=== PATIENT | male | born 1965 | race Caucasian/White ===

== ENCOUNTER 2017-06-14 10:36 | Inpatient (IN) | payer MEDICARE, BC ==
[~2017-06-14] VITALS: Ht 167.6 cm; Wt 80.7 kg
[~2017-06-14 10:36] MED LIST: AMLODIPINE BESY10 MG PO; ASPIR 8181 MG PO; BRILINTA90 MG PO; CALCITRIOL0.5 MCG PO; CELEXA 20 MG TA20 M1 PO; CEPHALEXIN 500500 M2 PO; EFFEXOR XR150 MG PO; ERYTHROMYCIN500 MG PO; FIFTY50 RESERV1 EACH; FOLIC ACID20 MG PO; HYDROCHLOROTH12.5 MG PO; IBUPROFEN 800800 M1 PO; LANTUS SC; LIPITOR 20 MG T20 M1 PO; LISINOPRIL20 MG PO; LOPRESSOR50 PO; MELATONIN3 MG PO; MINIPRIN81 MG PO; NORVASC 5 MG TAB5 MG PO; NOVOLOG100 UNIT/1 SQ; REMERON15 MG PO; SULFACETAMIDE 115 M1; ZOCOR 10 MG TAB10 MG PO
[2017-06-14 10:44] VITALS: BP 180/91
[2017-06-14] MEDS ORDERED: NOVOLOG100 UNIT/1 SUBQ (10:50)
[2017-06-14] MEDS ORDERED: PHOSPHORUS BINDER PO (10:52)
[2017-06-14] MEDS ORDERED: RENAL CAPS SOFTG1 MG PO (10:52)
[2017-06-14 11:02] LABS: ABSOLUTE BASOPHILS 0.1 thou/uL (0.0-0.2); ABSOLUTE EOSINOPHILS 0.1 thou/uL (0.0-0.7); ABSOLUTE MONOCYTES 0.3 thou/uL (0.0-1.2); BASOPHILS 1.8 %; EOSINOPHILS 1.3 %; HEMATOCRIT 40.4 % (42.0-52.0); HEMOGLOBIN 13.7 gm/dL (14.0-18.0); LYMPHOCYTES 15.1 %; MCH 30.4 pg (26.0-34.0); MCHC 33.9 g/dL (28.0-37.0); MCV 89.7 fL (80.0-100.0); MONOCYTES 5.3 %; MPV 8.4 fl. (7.2-11.1); NUCLEATED RBCS 0 /100WBC; PLATELET COUNT* 162 thou/uL (150-400); POLYS 76.5 %; RBC 4.51 mil/uL (4.50-6.00); RDW-CV 13.3 % (10.5-14.5); WBC 6.6 thou/uL (4.0-11.0)
[2017-06-14 11:12] LABS: APTT 26.8 Seconds (25.0-31.3); INR 1.1; PROTIME 10.5 Seconds (9.20-11.50)
[2017-06-14 11:14] LABS: ANION GAP 6 mmol/L (7-16); BUN 41 mg/dL (7-18); CALCIUM 9.1 mg/dL (8.5-10.1); CHLORIDE 95 mmol/L (98-107); CO2 29 mmol/L (21-32); CREATININE 5.6 mg/dL (0.6-1.3); POTASSIUM 4.8 mmol/L (3.5-5.1); SODIUM 130 mmol/L (136-145)
[2017-06-14 11:17] LABS: GLUCOSE 604 mg/dL (70-99)
[2017-06-14 11:18] LABS: ALBUMIN 3.5 g/dL (3.4-5.0); ALKALINE PHOSPHATASE 130 U/L (46-116); SGOT 15 U/L (15-37); SGPT 19 U/L (30-65); TOTAL BILIRUBIN 0.4 mg/dL (<0.1-1.0); TOTAL PROTEIN 7.4 g/dL (6.4-8.2); TROPONIN-I LEVEL <0.06 ng/mL (<0.06)
[2017-06-14 11:28] LABS: BE 0.6 mmol/L (-2 to +3); HCO3 25.9 mmol/L (22.0-26.0); PCO2 44.4 mmHg (35.0-45.0); PO2 64.5 mmHg (75.0-100.0); pH 7.384 (7.340-7.450)
[2017-06-14 15:25] LABS: URINE BILIRUBIN NEGATIVE (Negative); URINE BLOOD TRACE (Negative); URINE CLARITY CLEAR; URINE COLOR STRAW; URINE GLUCOSE-RANDOM 3+ (Negative); URINE KETONES NEGATIVE (Negative); URINE LEUKOCYTES-REFLEX NEGATIVE (Negative); URINE NITRITE-REFLEX NEGATIVE (Negative); URINE PROTEIN 2+ (Negative); URINE SPECIFIC GRAVITY 1.015 (1.005-1.030); URINE UROBILINOGEN 0.2 E.U./dl (0.2-1.0)
[2017-06-14 15:42] LABS: BACTERIA-REFLEX None Seen /HPF (None Seen); SQUAMOUS 0-3 Few /LPF (0-3); URINE RBC 0-2 Rare /HPF (0-2); URINE WBC-REFLEX None Seen /HPF (0-5)
[2017-06-14 15:43] LABS: CASTS None Seen /LPF (None Seen); CRYSTALS None Seen /LPF (None Seen); MUCUS 0-3 Light strn/LPF (None Seen)
[2017-06-14 15:47] VITALS: BP 181/95
[2017-06-14 19:40] VITALS: BP 164/81
[2017-06-14 23:53] VITALS: BP 150/67
[2017-06-15 01:27] LABS: ABSOLUTE BASOPHILS 0.1 thou/uL (0.0-0.2); ABSOLUTE EOSINOPHILS 0.3 thou/uL (0.0-0.7); ABSOLUTE LYMPHOCYTES 2.2 thou/uL (0.8-5.3); ABSOLUTE MONOCYTES 0.7 thou/uL (0.0-1.2); ABSOLUTE NEUTROPHILS 5.1 thou/uL (1.6-8.1); BASOPHILS 1.2 %; EOSINOPHILS 3.5 %; HEMOGLOBIN 12.4 gm/dL (14.0-18.0); LYMPHOCYTES 26.3 %; MCH 30.7 pg (26.0-34.0); MCHC 34.4 g/dL (28.0-37.0); MONOCYTES 8.4 %; MPV 8.3 fl. (7.2-11.1); NUCLEATED RBCS 0 /100WBC; PLATELET COUNT* 155 thou/uL (150-400); POLYS 60.6 %; RBC 4.04 mil/uL (4.50-6.00); RDW-CV 13.4 % (10.5-14.5); WBC 8.4 thou/uL (4.0-11.0)
[2017-06-15 01:44] LABS: ANION GAP 11 mmol/L (7-16); BUN 43 mg/dL (7-18); CALCIUM 8.3 mg/dL (8.5-10.1); CHLORIDE 106 mmol/L (98-107); CHOLESTEROL 213 mg/dL (<200); CO2 25 mmol/L (21-32); CREATININE 5.7 mg/dL (0.6-1.3); GLUCOSE 202 mg/dL (70-99); HDL CHOLESTEROL 31 mg/dL (>40); LDL CHOLESTEROL 149 mg/dL (<100); POTASSIUM 4.1 mmol/L (3.5-5.1); SODIUM 142 mmol/L (136-145); TC:HDL 6.9 Ratio (Not establshd); TRIGLYCERIDE 169 mg/dL (<150); VLDL 34 mg/dL (<40)
[2017-06-15 02:01] LABS: SERUM ASSESSMENT Clear
[2017-06-15 04:00] VITALS: BP 120/72
[2017-06-15 08:16] VITALS: BP 163/84
[2017-06-15 10:09] LABS: GLYCOHEMOGLOBIN (HGB A1C) 8.9 % (4.8-5.6)
--- NOTE | 2017-06-15 10:50 | EKG ---
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 : 1965 Requested By: Keesha Gunn Order Number: [id number] MD: Bobby Johnson Measurements Intervals [place] Rate: 61 P: 1 RI: 135 QRS: 13 QRSD: 90 T: 112 QT: 402 QTc: 405 Interpretive Statements Sinus rhythm Abnormal R-wave progression, late transition Abnormal T, consider ischemia, lateral leads Baseline wander in lead(s) III Compared to ECG 09/25/2016 02:56:33 no change Electronically Signed On 06-15-2017 10:50:36 TALENT ANALYST by Bobby Johnson [email or web address] <ELECTRONICALLY SIGNED> By: Bobby Johnson MD, FAC 06/15/17 1050 1108 1108 Bobby Johnson MD, [facility] /EPI
[2017-06-15 12:14] VITALS: BP 187/81
--- NOTE | 2017-06-15 14:37 | 2DMMODE ---
[place] [address] 2 D/M-MODE ECHOCARDIOGRAM Name: LORI HANDY Room: [address] IN [facility]#: [id number] Admission: 06/14/17 Attend Phys: Dave Segovia, Discharge: Date of : 65 Date of Service: 06/15/17 1436 Report #: [id number] THIS REPORT FOR: //name// APPROVED REPORT Study performed: 06/15/2017 11:40:39 EXAM: Comprehensive 2D, Doppler, and color-flow Echocardiogram Patient Location: In-Patient Room #: [facility] Status: routine BSA: 2.04 HR: 64 bpm BP: 163/84 mmHg Rhythm: NSR Other Information Study Quality: Good Indications CVA/TIA Echo Enhancing Agent Indication: Rule out Shunt Agent(s) / Amount(s) Used: Agitated Saline 10 cc 2D Dimensions LVEF(%): 65.56 (>50%) IVSd: 11.69 (7-11mm) LVOT Diam: 18.43 (18-24mm) LVDd: 47.17 mm PWd: 8.19 (7-11mm) Ascending Ao: 30.57 (22-36mm) LVDs: 30.19 (25-40mm) Aortic Root: 29.26 mm Saavedra's LVEF: 65.56 % Volumes Left Atrial Volume (Systole) LA ESV Index: 24.90 mL/m2 Aortic Valve AoV Peak Tanner.: 1.26 m/s AO Peak Gr.: 6.34 mmHg LVOT Max P.51 mmHg AO Mean Gr.: 3.95 mmHg LVOT Mean P.54 mmHg LVOT Max V: 1.17 m/s AO V2 VTI: 32.30 cm LVOT Mean V: 0.73 m/[place] [address] 2 D/M-MODE ECHOCARDIOGRAM Name: LORI HANDY Room: [address] IN [facility].#: [id number] Admission: 06/14/17 Attend Phys: Dave Segovia, Discharge: Date of : 65 Date of Service: 06/15/17 1436 Report #: [id number] AVERY (VTI): 2.32 cm2 LVOT V1 VTI: 28.05 cm Mitral Valve E/A Ratio: 1.43 MV Decel. Time: 153.32 ms MV E Max Tanner.: 1.28 m/s MV PHT: 44.46 ms MVA (PHT): 4.95 cm2 TDI E/Lateral E': 14.22 E/Medial E': 14.22 Medial E' Tanner.: 0.09 m/s Lateral E' Tanner.: 0.09 m/s Pulmonary Valve PV Peak Tanner.: 1.06 m/s PV Peak Gr.: 4.50 mmHg Left Ventricle The left ventricle is normal size. There is normal LV segmental wall motion. There is normal left ventricular wall thickness. Left ventricular systolic function is normal. The left ventricular ejection fraction is within the normal range. LVEF is 60-65%. The left ventricular diastolic function is normal. Right Ventricle The right ventricle is normal size. The right ventricular systolic function is normal. Atria The left atrium size is normal. Interatrial septum is intact without evidence of ASD or PFO. The right atrium size is normal. Aortic Valve The aortic valve is normal in structure. No aortic regurgitation is present. There is no aortic valvular stenosis. Mitral Valve The mitral valve is normal in structure. Trace mitral regurgitation. No evidence of mitral valve stenosis. Tricuspid Valve The tricuspid valve is normal in structure. Unable to assess PA pressure. Trace tricuspid regurgitation. Pulmonic Valve The pulmonary valve is normal in structure[place] [address] 2 D/M-MODE ECHOCARDIOGRAM Name: LORI HANDY Room: [address] ..#: [id number] Admission: 06/14/17 Attend Phys: Dave Segovia, Discharge: Date of : 65 Date of Service: 06/15/17 1436 Report #: [id number] regurgitation. Great Vessels The aortic root is normal in size. IVC is normal in size and collapses with >50% inspiration Pericardium There is no pericardial effusion. <Conclusion> LVEF is 60-65%. Interatrial septum is intact without evidence of ASD or PFO. <ELECTRONICALLY SIGNED> By: Bobby Johnson MD, FACC 06/15/17 1436 1436 1436 Bobby Johnson MD, FACC /INF
[2017-06-15 17:23] VITALS: BP 168/71
[2017-06-15 20:00] VITALS: BP 153/66
[2017-06-16 01:19] VITALS: BP 177/88
[2017-06-16 04:54] VITALS: BP 167/75
[2017-06-16 08:00] VITALS: BP 167/90
[2017-06-16] MEDS ORDERED: NOVOLOG100 UNIT/1 SUBQ (16:08)
[2017-06-16 16:09] VITALS: BP 167/75
[2017-06-16 17:19] VITALS: BP 167/75
--- NOTE | 2017-06-17 15:08 | CON ---
[address] [address] CONSULTATION Name: LORI HANDY Room: [address]#: [id number] Admission: 06/14/17 Attend Phys: Dave Segovia MD Discharge: 06/16/17 Date of : 65 Report #: [id number] THIS REPORT FOR: //name// [facility] DATE OF SERVICE: 06/16/2017 CONSULTING PHYSICIAN: Dave Segovia MD CHIEF COMPLAINT: Slurring of speech and left facial droop. REASON FOR NEPHROLOGY CONSULT: On hemodialysis, ESRD. HISTORY OF PRESENT ILLNESS: This is a 51-year-old man with end-stage renal disease, on hemodialysis every Thursday, and Thursday; history of CVA, coronary artery disease, who came in with slurring of speech and left-sided facial droop. Neurology evaluated the patient and checked an MRI. MRI did not reveal any acute stroke. Nephrology has been consulted for dialysis needs. Currently, the patient is comfortable, ready to go home after his dialysis today. REVIEW OF SYSTEMS: A 10-point review of systems done and negative. ALLERGIES: Reviewed. HOME MEDICATIONS: Reviewed. CURRENT INPATIENT MEDICATIONS: Reviewed. FAMILY HISTORY: Noncontributory. PAST MEDICAL AND SURGICAL HISTORY: Includes: 1. History of CVA. 2. ESRD, on hemodialysis every Thursday, and Saturday. 3. Hypertension. 4. Diabetes type 1. 5. AR, stents times 2. FAMILY HISTORY: Significant for heart disease. SOCIAL HISTORY: Former smoker. No history of alcohol use or recreational drug use. PHYSICAL EXAMINATION: VITAL SIGNS: Blood pressure is 167/75, pulse rate is 60, temperature is 36.9, [address] [address] CONSULTATION Name: LORI HANDY Room: [address]#: [id number] Admission: 06/14/17 Attend Phys: Dave Segovia MD Discharge: 06/16/17 Date of : 65 Report #: [id number] respiratory rate is 19, and pulse ox is 98% on room air. GENERAL: He is awake, alert, oriented x3, in no acute distress. HEAD, EYES, EARS, NOSE, AND THROAT: Mucous membranes are moist. NECK: No JVD. CHEST: Clear to auscultation bilaterally. No crackles or wheezing heard. CARDIOVASCULAR: S1, S2 normal. No murmurs heard. ABDOMEN: Soft, nondistended, nontender. Bowel sounds are present. EXTREMITIES: AV fistula with good bruit and good thrill and symmetrical extremities and no edema. NEUROLOGICAL FUNCTION: Gross neurological function seems to be intact. PSYCHIATRIC: Mood and affect seem to be normal. LABS: Hemoglobin is 12.4 on June 15, potassium is 4.1 and this was on 06/15/2017 and other labs were reviewed. IMAGING STUDIES: Reviewed. ASSESSMENT: 1. End-stage renal disease, on hemodialysis. 2. Left-sided facial droop. 3. Hypertension. PLAN: MRI was ruled out by primary team. The patient will be dialyzed today according to his regular schedule. Blood pressure should get better after fluid removal as well. The patient is okay to be discharged from renal standpoint after his dialysis. Thank you for this consultation. If he stays in the hospital, we will continue to follow along with you for his dialysis needs. <ELECTRONICALLY SIGNED> By: Becky Moreno MD 06/17/17 1508 1228 [id number] Moreno MD /nt
--- NOTE | 2017-06-18 11:53 | CON ---
[address] [address] CONSULTATION Name: LORI HANDY Room: [address] IN M.R.#: [id number] Admission: 06/14/17 Attend Phys: Dave Segovia MD Discharge: 06/16/17 Date of : 65 Report #: [id number] THIS REPORT FOR: //name// CC: Dave Krugera Gu DATE OF SERVICE: 06/15/2017 HISTORY OF PRESENT ILLNESS: This is a 51-year-old male patient who was evaluated by me for speech difficulty. The records indicate that he also had some left facial droop. He was admitted from emergency room after evaluation. This has happened the night before. He was seen in the emergency room and was evaluated there and subsequently admitted there and then a routine consultation was done to evaluate the patient further for any more suggestion. He continued to have moderately difficulty with speech. He has swallowing difficulty, but he indicates that is old. REVIEW OF SYSTEMS: Indicate that he used to see a neurologist. He was diagnosed with stroke. He had multiple MRIs demonstrating stroke. He has diabetes, which is uncontrolled. He has hypertension. He is on dialysis. He had problem with alcohol in the past. His 14-point review of system was carried out and this was the relevant 14-point review of system. He also has a history of coronary artery disease, but his main difference now is that he is having speech difficulty. He also has some swallow difficulty. He is not complaining of any new eye, ENT, cardiac, respiratory, GI, , musculoskeletal, constitutional, dermatological, hematological, psychiatric, throat, allergic symptom associated with present symptomatology. PAST MEDICAL HISTORY: Positive for stroke, but I do not have any prior records from him. FAMILY HISTORY: Negative for epilepsy. SOCIAL HISTORY: Indicates he used to smoke. PHYSICAL EXAMINATION: The patient's examinations indicate he is alert. He is responsive. He is oriented. His speech is impaired. His memory and fund of knowledge is baseline. Cranial nerve examination 2-12 looks unremarkable. I did not see any facial weakness. He has symmetrical strength, sensation, reflexes and tone in all 4 extremities. There is no cerebellar sign or papilledema. There is no carotid bruit in this patient. There is no thyroid mass. He is a reasonably well-developed individual who does not have any dysmorphic features of eyes, ears, and face. His hearing and vision looks adequate. His pulses are palpable. He has no edema, cyanosis or jaundice. He is a reasonably well-developed individual whose hearing and vision is adequate. His cardiac examination shows no atrial fibrillation [place] [address] CONSULTATION Name: LORI HANDY Room: [address]#: [id number] Admission: 06/14/17 Attend Phys: Dave Segovia MD Discharge: 06/16/17 Date of : 65 Report #: [id number] unremarkable. He has no respiratory difficulty or rhonchi. His blood pressure is 163/84, respirations 18, pulse is 72, and temperature is 97.7. LABORATORY DATA: His white count is 8.4 and his blood sugar was high when he came in, it is still high, but is better; and his sodium is normal. His CT scan of the head indicates pretty extensive chronic changes. IMPRESSION: This patient's clinical presentation is consistent with probably another stroke he may have had. We need to confirm that on the MRI. He has numerous vascular risk factors. I suspect that is the causes of his strokes such a young age. However, we will exclude any other etiology in that regard depending on the MRI. I suppose he probably has been already worked up by his neurologist as an outpatient, but we will see if we need to do anything different. RECOMMENDATION: I discussed all of it with the patient. Plan is to get an MRI done. We will see if it demonstrates another stroke. If it does demonstrate another stroke, we might do some more workup on him and may decide about some different treatment on him. Thank you very much for this referral and if you have any question, please feel free to contact me. <ELECTRONICALLY SIGNED> By: Luc Nicholson MD 06/18/17 1153 0829 [id number] Nicholson MD /nt
[2017-10-06] MEDS ORDERED: NORCO 5-325 TA1 EACH PO (11:43)
== END 2017-06-16 17:45 | disposition home or self-care (01) | DRG 70 ==
LOC: M.ERS 10:36 → M.2W 13:19 → M.TBA-ER 13:19 → M.2W 16:01
PROVIDERS: Personal Emergency Response Attendant; ADMIT Internal Medicine
PROC: 5A1D70Z Performance of Urinary Filtration, Intermittent, Less than 6 Hours Per Day (ICD-10-PCS; principal; 2017-06-16)
DX: G93.40 Encephalopathy, unspecified (principal); N18.6 End stage renal disease; E87.1 Hypo-osmolality and hyponatremia; I12.0 Hypertensive chronic kidney disease with stage 5 chronic kidney disease or end stage renal disease; E10.65 Type 1 diabetes mellitus with hyperglycemia; R47.81 Slurred speech; R29.810 Facial weakness; I25.10 Atherosclerotic heart disease of native coronary artery without angina pectoris; E10.22 Type 1 diabetes mellitus with diabetic chronic kidney disease; Z79.4 Long term (current) use of insulin; Z86.73 Personal history of transient ischemic attack (TIA), and cerebral infarction without residual deficits; Z99.2 Dependence on renal dialysis; I25.2 Old myocardial infarction; Z95.5 Presence of coronary angioplasty implant and graft; Z79.899 Other long term (current) drug therapy; Z88.0 Allergy status to penicillin; Z87.891 Personal history of nicotine dependence; Z82.49 Family history of ischemic heart disease and other diseases of the circulatory system

== ENCOUNTER → 2017-10-06 | Day surgery (SDC) | payer MEDICARE, BC ==
[~2017-10-06] MED LIST changes: +NORCO 5-325 TA1 EACH PO; +NOVOLOG100 UNIT/1 SUBQ; +PHOSPHORUS BINDER PO; +RENAL CAPS SOFTG1 MG PO
[2017-10-06 09:36] LABS: HEMOGLOBIN 14.2 gm/dL (14.0-18.0); MCH 30.5 pg (26.0-34.0); MCHC 33.1 g/dL (28.0-37.0); MCV 92.3 fL (80.0-100.0); RBC 4.66 mil/uL (4.50-6.00); RDW-CV 14.3 % (10.5-14.5); WBC 6.1 thou/uL (4.0-11.0)
[2017-10-06 09:42] LABS: CALCIUM 8.4 mg/dL (8.5-10.1); CREATININE 5.8 mg/dL (0.6-1.3); POTASSIUM 5.2 mmol/L (3.5-5.1)
--- NOTE | 2017-10-12 09:54 | PROC ---
[facility] [address] [place] [address] PROCEDURE REPORT Name: LORI HANDY Room: [facility]#: [id number] Admission: 10/06/17 Attend Phys: Aleksandr Acosta Discharge: Date of : 65 Report #: [id number] THIS REPORT FOR: //name// CC: Aleksandr Pérez DATE OF SERVICE: 10/06/2017 PREOPERATIVE DIAGNOSIS: End-stage renal disease. POSTOPERATIVE DIAGNOSIS: End-stage renal disease. PROCEDURE: 1. Laparoscopic placement of peritoneal dialysis catheter. 2. Laparoscopic omentopexy. SURGEON: Aleksandr Acosta M.D. ANESTHESIA: General. ESTIMATED BLOOD LOSS: Minimal. SPECIMEN: None. DESCRIPTION OF PROCEDURE: After informed consent was obtained, the patient was brought to the operating room and placed supine. SCDs were placed and working, preoperative antibiotics were administered, general anesthesia was induced. The abdomen was prepped and draped in the usual sterile fashion. A 5-mm incision was made in the left upper quadrant. A 5-mm trocar was placed under direct vision. Pneumoperitoneum was established. Left-sided 5-mm port was placed. An 8-mm trocar was placed in the left rectus sheath. The catheter was placed through the 8-mm port. The catheter was then tunneled to the left upper quadrant of the abdomen. It flushed very easily with 500 mL of heparinized saline. I then reinsufflated the abdomen. Omentopexy was then performed using a suture passer and 2-0 Vicryl to tack the omentum up to the abdominal wall in 2 places in the right upper quadrant. The ports were removed under direct vision. The skin was closed with 4-0 Monocryl. Incisions were sealed with Dermabond. COMPLICATIONS: [place] [address] PROCEDURE REPORT Name: LORI HANDY Room: [facility]#: [id number] Admission: 10/06/17 Attend Phys: Aleksandr Acosta Discharge: Date of : 65 Report #: [id number] DISPOSITION: The patient was taken to recovery in satisfactory condition. <ELECTRONICALLY SIGNED> By: Aleksandr Acosta MD 10/12/17 0954 1100 [id number] Acosta MD /nt
== END | disposition home or self-care (01) ==
LOC: M.SUR 06:50
PROVIDERS: Surgery
DX: N18.6 End stage renal disease (principal); I25.2 Old myocardial infarction; Z86.73 Personal history of transient ischemic attack (TIA), and cerebral infarction without residual deficits; Z79.82 Long term (current) use of aspirin; Z79.899 Other long term (current) drug therapy

== ENCOUNTER → 2018-03-12 | Outpatient (CLI) | payer MEDICARE, BC | LOC: M.RAD 14:19 | DX: M25.511 Pain in right shoulder (principal) ==